=== PATIENT | male | born 1965 | race Hispanic/Latino ===

== ENCOUNTER → 2018-11-08 | Outpatient (CLI) | payer OTHER ==
--- NOTE | 2018-11-08 12:57 | Diagnostic Imaging Report ---
Right knee MRI without contrast. History: Trauma. Knee pain. Prior surgery. Decreased range of motion. Pain not responding to conservative management Comparison: None. Technique: Multiplanar multi-sequence MRI of the knee without contrast. Findings: Medial compartment: Maceration of the medial meniscus. Meniscal tissue is displaced peripherally. There is focal full-thickness articular cartilage loss in the medial compartment with underlying bone marrow edema and subchondral cystic change. Peripheral marginal osteophytes. The medial collateral ligament complex is intact. Lateral compartment: Maceration of the lateral meniscus predominantly involving the posterior horn and body segments. There is focal full-thickness articular cartilage loss in the lateral compartment with underlying bone marrow edema and subchondral cystic change. Peripheral marginal osteophytes. The lateral collateral ligament complex is intact. Intercondylar notch: Prior anterior cruciate ligament reconstruction with associated postsurgical change. The anterior cruciate ligament graft is torn. There is degeneration and scarring of the posterior cruciate ligament. Patellofemoral compartment: Articular cartilage fraying and deep fissuring in the patellofemoral compartment with underlying bone marrow edema. Extensor mechanism: The quadriceps and patellar tendons are normal. Other findings: There is a joint effusion and synovitis. There is no acute fracture, subluxation or avascular necrosis. IMPRESSION: Prior anterior cruciate ligament reconstruction with associated postsurgical change. The anterior cruciate ligament graft is torn. 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 Articular cartilage fraying in the fissure and in the patellofemoral compartment with underlying bone marrow edema. Signed by: Dr. Carlos Trejo M.D. on 11/08/2018 12:53 PM
== END ==
LOC: MRI 11:44
PROVIDERS: ATTEND Family Medicine
DX: S83.91XA Sprain of unspecified site of right knee, initial encounter (principal)